=== PATIENT | male | born 1965 | race Caucasian/White ===

== ENCOUNTER 2022-03-18 21:04 | Inpatient (IN) | payer OTHER, SELFPAY ==
[2022-03-18 21:08] VITALS: BP 84/64; PULSE 119; RESP 16; TEMP 38.5; O2SAT 95; BMI 26.8
[2022-03-18 22:07] VITALS: BP 69/52; PULSE 75; RESP 18; O2SAT 97
[2022-03-18] MEDS: Famotidine 200 MG/20 ML MDV 40 MG in 0.9% Normal Saline (Pres. free 6 ML 300 MG IV (22:22)
[2022-03-18] MEDS: 0.9% Normal Saline 1,000 ML 999 ML IV (22:22)
--- NOTE | 2022-03-18 22:22 | RAD_ITS ---
STUDY: X-RAY CHEST REASON FOR EXAM: Male, 56 years old. cough TECHNIQUE: AP COMPARISON: None. FINDINGS: The lungs are clear and expanded. There is no demonstrated pleural abnormality. Normal size heart. Normal mediastinum and kristopher. Normal visualized pulmonary arteries. Normal visualized aortic arch and descending thoracic aorta. Normal visualized thoracic spine. Normal visualized ribs, clavicles, and shoulders. There is no demonstrated abnormality of the visualized soft tissue structures of the upper abdomen. RAD/Chest 1 View (Portable) IMPRESSION: Nonacute portable x-ray examination of the chest. Electronically Signed: Karthik Wilhelm MD (Brooks) at 22:36 EDT Reading Location ID and State: [facility] / [place] , Service support ,
[2022-03-18] MEDS: Acetaminophen 500 MG Tablet 1000 MG PO (22:23)
[2022-03-18] MEDS: MethylPREDNISolone 125 MG/2 ML Vial IV (22:24)
[2022-03-18 22:30] LABS: Absolute Lymphocyte Count 0.78 X10^3/uL (0.83-4.51); Absolute Neutrophil Count 8.6 X10^3/uL (2.0-7.7); Basophil# 0.02 X10^3/uL; Basophil% 0.2 % (0-1); Eosinophil# 0.08 X10^3/uL; Eosinophils% 0.8 % (0-5); Hematocrit 40.3 % (40-54); Hemoglobin 13.7 g/dL (13.0-16.5); Lymphocyte # 0.78 X10^3/ul (0.83-4.51); Lymphocyte % 7.8 % (19-41); Mean Corpuscular Hgb 29.4 pg (27.0-32.0); Mean Corpuscular Volume 86.5 fL (80-94); Mean Platelet Vol. 9.7 fl (6.2-12.0); Monocyte# 0.47 X10^3/uL; Monocyte% 4.7 % (0-10); NRBC Flagged by Analyzer 0 % (0-5); Neutrophil # 8.62 X10^3/uL (2.7-7.7); Platelet Count 193 K/mm3 (150-450); RBC Distribution Width CV 13.4 % (11.6-14.6); Red Blood Count 4.66 M/mm3 (4.6-6.2)
[2022-03-18 22:55] LABS: AST(SGOT) 19 U/L (15-37); Alanine Aminotransfer ALT/SGPT 17 U/L (16-61); Albumin, Serum 3.2 g/dL (3.2-5.0); Alkaline Phosphatase 50 U/L (45-117); Anion Gap 8 (5-15); BUN 16 mg/dL (7-18); BUN/Creat Ratio 9.6 RATIO (10-20); Bilirubin, Direct 0.24 mg/dL (0.00-0.30); Chloride 106 mmol/L (98-107); Creatinine, Serum 1.66 mg/dL (0.70-1.30); EST Glomerular Filtration Rate 46 mL/min (>60); Est Glom Filt Rate - Afr Amer 56 mL/min (>60); Estimated Creatinine Clearance 58.46 ml/min; Globulin 3.4 g/dL (2.2-4.2); Glucose 128 mg/dL (74-106); Potassium 4.3 mmol/L (3.5-5.1); Protein, Total 6.6 g/dL (6.4-8.2); Sodium Level 137 mmol/L (136-145)
[2022-03-18 23:04] LABS: Lactic Acid 0.9 mmol/L (0.4-1.9)
[2022-03-18 23:47] VITALS: BP 75/40; PULSE 76; RESP 18; O2SAT 98
[2022-03-19] VITALS (34 sets, daily range): BP systolic 82–121; BP diastolic 44–79; PULSE 53–98; RESP 13–28; TEMP 36.6–36.9; O2SAT 92–100; BMI 27.1
--- NOTE | 2022-03-19 00:12 | ED.RN ---
Dr. saldivar made aware of patients blood pressure.
--- NOTE | 2022-03-19 00:57 | EKG12_ITS ---
Test Reason : DYSRHYTHMIA Blood Pressure : / mmHG Vent. Rate : 090 BPM Atrial Rate : 090 BPM P-R Int : 118 ms QRS Dur : 078 ms QT Int : 366 ms P-R-T Axes : 069 032 009 degrees QTc Int : 447 ms Normal sinus rhythm Nonspecific T wave abnormality Abnormal ECG Confirmed by LUDMILA SAM, JOE ([id number]), communications editor STAN HALE ([id number]) on 03/19/2022 11:43:11 AM Referred By: HOLLY Confirmed By:JOE KEYS MD
--- NOTE | 2022-03-19 01:04 | HP.PCM.HOS_ITS ---
HPI - General General Date of Admission: 03/19/22 HPI Narrative RAJNI BONNER, is a 56 M with no significant medical history except he chews tobacco presents to the emergency department with diffuse rashes on his body. His symptoms started a day before presentation with malaise. Also he reports a non productive cough. He went to the urgent care and he was diagnosed with upper respiratory infection and prescribed albuterol that even though he picked up he had not started taking as at the time of presentation.. The patient stayed home the day of presentation. When his returned from where his read the patient was covered with diffuse rash with his eyes closing secondary to swelling and rash. Patient denies shortness of breath. Patient reports weakness and anorexia. He reports some change in his taste. He denies anosmia. COVID-19 screen at emergency department was found to be positive. Patient denies receiving COVID-19 vaccination. At the emergent department patient was found to have persistent hypotension which prompted his hospital stay. Home medicine: Patient is not on any home medicine except albuterol inhaler prescribed at urgent care visit and for which he never took. [facility] Medical History no medical history Home Medications NK 03/19/22 [History Last Taken Unknown] Allergy/AdvReac Type Severity Reaction Status Date / Time ANTIHISTAMINES Allergy Swelling Uncoded 03/18/22 21:05 Family History no significant family his other (Patient denies any knowledge of maternal or paternal medical history.) Surgical History no surgical history no surgical history Social History Smoking Status: Current every day smoker tobacco type: smokeless tobacco Smokeless tobacco user: chewing tobacco alcohol intake: current details: Reports drinking 2 to 3 cans/bottles of beer per day ROS ROS Narrative Pertinent positives and pertinent negatives as noted in HPI. All other systems were reviewed and are negative. Vital Signs Vital Signs Vital Signs: 03/18/22 21:08 03/18/22 22:07 03/18/22 23:47 Temperature 101.3 F H Temperature Source Temporal Pulse Rate 119 H 75 76 Respiratory Rate 16 18 18 Blood Pressure 84/64 L 69/52 L 75/40 L Blood Pressure Mean 70 57 51 Pulse Ox 95 97 98 Oxygen Delivery Method Room Air Room Air Room Air 03/19/22 00:07 Temperature Temperature Source Pulse Rate 76 Respiratory Rate 18 Blood Pressure 82/44 L Blood Pressure Mean 56 Pulse Ox 98 Oxygen Delivery Method Room Air Weight Weight: 94.7 kg Body Mass Index (BMI) 26.8 Physical Exam Narrative Physical exam: General: Well-nourished, well-developed. Head: Normocephalic, atraumatic, no tenderness Eyes: Vision is grossly intact. EOMI ENT, no trauma, moist mucous membranes, no rhinorrhea Neck: Nontender, full range of motion, no spinal tenderness, deformities, step- off CVS: Regular rate and rhythm. S1-S2 present. No murmur, gallop or rub. Respiratory : Wheezes at right base. All other lung melendez clear. Chest wall nontender. Abdomen: Soft, nontender, nondistended, normal bowel sounds, no masses : Deferred Back: Nontender, no CVA tenderness, no midline spinal tenderness, deformities, step-offs Extremities: Nontender full range of motion, no trauma Skin: Scattered urticarial rash throughout body. No abrasions Neuro: Alert, oriented, cranial nerves II through XII grossly intact. Psychiatry: Normal mood. Normal affect. Not depressed. Not anxious. Results Lab / Micro Data Result Diagrams: 03/18/22 22:20 03/18/22 22:20 Labs: Laboratory Results - last 24 hr 03/18/22 22:20: WBC 10.0, RBC 4.66, Hgb 13.7, Hct 40.3, MCV 86.5, MCH 29.4, MCHC 34.0, RDW Std Deviation 42.0, RDW Coeff of Lázaro 13.4, Plt Count 193, MPV 9.7, Immature Gran % (Auto) 0.500, Neut % (Auto) 86.0 H, Lymph % (Auto) 7.8 L, [place] % (Auto) 4.7, Eos % (Auto) 0.8, Baso % (Auto) 0.2, Absolute Neuts (auto) 8.6 H, Absolute Lymphs (auto) 0.78 L, Nucleated RBC % 0 03/18/22 22:20: Sodium 137, Potassium 4.3, Chloride 106, Carbon Dioxide 23.0, Anion Gap 8, BUN 16, Creatinine 1.66 H, Estim Creat Clear Calc 58.46, Est GFR (MDRD) Af Amer 56 L, Est GFR (MDRD) Non-Af 46 L, BUN/Creatinine Ratio 9.6 L, Glucose 128 H, Calcium 8.0 L, Total Bilirubin 1.80 H, Direct Bilirubin 0.24, AST 19, ALT 17, Alkaline Phosphatase 50, Total Protein 6.6, Albumin 3.2, Globulin 3.4 03/18/22 22:20: Lactic Acid 0.9 Micro: Microbiology 03/18/22 22:15 Nasal Secretion SARS-CoV-2 & FLU Antigen (Rapid) - Final SARS-CoV-2 (COVID 19) Radiology Impression Chest X-Ray 03/18/22 22:22 IMPRESSION: Nonacute portable x-ray examination of the chest. Electronically Signed: Karthik Wilhelm MD (Brooks) at 22:36 EDT , Assessment & Plan Assessment/Plan (1) Hypotension: QUALIFIERS: Hypotension type: unspecified hypotension type Denis lified Code(s): I95.9 - Hypotension, unspecified (2) COVID-19: (3) Urticarial rash: PLAN: Hypotension Received 1 L bolus of normal saline at the emergency department. Because of COVID-19 further IV fluid boluses were not given. Started on Levophed drip at emergency department and continued. Midodrine ordered with plan to taper down Levophed. Will observe and intensive care unit and will consult payroll and benefits assistant. CBC reviewed showed normal white counts but with neutrophilia of 86% and lymphopenia of 7.8%. COVID-19 infection Chest x-ray was visualized and independently interpreted and agree radiology interpretation above. Patient is not hypoxic. As needed albuterol ordered. PRN Tessalon Perles ordered. Keep on an enhanced droplet precautions. Urticarial rash Received epinephrine Pepcid and Solu-Medrol emergency department. Loratadine daily ordered. Pepcid ordered. Prednisone ordered. As needed Benadryl ordered. Hyperbilirubinemia Total bilirubin of presentation was 1.80 Likely secondary to COVID. Trend CMP Elevated creatinine Creatinine presentation was 1.66. Unknown baseline. Could be secondary to FAY from COVID-19 infection. Gentle IV hydration. Avoid nephrotoxins. Trend CMP. Tobacco abuse Counseled. DVT prophylaxis: Subcutaneous Lovenox ordered Charges/Coding Visit Charges OBSV E&M: 18790 Initial observation care L3
--- NOTE | 2022-03-19 01:27 | EDS_ITS ---
HPI History of Present Illness Chief Complaint: Rash Narrative Narrative: Patient is a 56-year-old male who does not regularly see a doctor. He states that over the past 3 to 4 days he has had congestion cough and fatigue. He states secondary to this he went to an urgent care earlier today. He reports that he was informed he has a upper respiratory tract infection and was prescribed certain medications. He states prior to her starting his medications he then developed a whole-body rash that he states is more pruritic in nature. He denies any new exposures but states that as he has now developed a rash and also a fever was concerned and therefore comes in for evaluation [facility] Medical History no medical history Home Medications NK 03/19/22 [History Last Taken Unknown] Allergy/AdvReac Type Severity Reaction Status Date / Time ANTIHISTAMINES Allergy Swelling Uncoded 03/18/22 21:05 Family History no significant family his Surgical History no surgical history Social History Smoking Status: Current every day smoker tobacco type: smokeless tobacco Smokeless tobacco user: chewing tobacco alcohol intake: current details: Reports drinking 2 to 3 cans/bottles of beer per day ROS ROS ED Constitutional Constitutional ED: Reports fever(s); Denies chills ENT ENT ED: Reports rhinorrhea and sore throat Cardiovascular Cardiovascular: Denies chest pain Respiratory/Chest Respiratory/Chest: Reports cough and dyspnea Gastrointestinal Gastrointestinal: Denies abdominal pain, diarrhea, nausea or vomiting Genitourinary Genitourinary ED: Denies dysuria Musculoskeletal Musculoskeletal: Denies myalgias Integumentary Reports rash Neurologic Neurologic: Denies headache(s) Hematologic/Lymphatic Hematologic/Lymphatic: Denies easy bleeding or easy bruising EXAM Physical Exam Const Vital Signs: 03/18/22 21:08 03/18/22 22:07 03/18/22 23:47 Temperature 101.3 F H Temperature Source Temporal Pulse Rate 119 H 75 76 Respiratory Rate 16 18 18 Blood Pressure 84/64 L 69/52 L 75/40 L Blood Pressure Mean 70 57 51 Pulse Ox 95 97 98 Oxygen Delivery Method Room Air Room Air Room Air 03/19/22 00:07 Temperature Temperature Source Pulse Rate 76 Respiratory Rate 18 Blood Pressure 82/44 L Blood Pressure Mean 56 Pulse Ox 98 Oxygen Delivery Method Room Air Positive well nourished and well developed General Appearance ED: well developed HEENT Reports dry mucous membranes HEENT Narrative: No tongue or lip swelling no oral lesions no airway edema or compromise Mouth ED: Yes dry mucous membranes Mouth: dry mucous membranes Eyes PERRL and EOMs intact bilaterally Neck supple Neck Narrative: Positive anterior cervical lymphadenopathy Chest Wall palpation of chest normal Resp normal respiratory effort and clear to auscultation bilaterally Resp Narrative: Breath sounds are slightly diminished throughout but overall clear to auscultation with no signs of distress Cardio regular rhythm Rate: tachycardic and other Other Details: Radial pulses are +2-4 bilaterally are equal and symmetric GI normal to inspection, nondistended, normoactive bowel sounds, non-tender, non- distended and no masses Auscultation: normoactive bowel sounds Palpation: soft Extremity normal to inspection Extremity Narrative: No asymmetric edema no pitting edema negative Homans' sign bilaterally Neuro oriented x3 and CN's II-XII intact bilaterally Sensorium / Orientation: alert Motor Exam: strength 5/5 throughout Psych mental status grossly normal Skin Skin Narrative: Patient has a diffuse erythematous blanchable urticarial-like rash to his legs chest abdomen back arms and face. No involvement of the palms or soles. No sloughing of the skin or coalescing lesions to suggest Edwards- Carlos Alberto syndrome or staphylococcal scalded skin syndrome MDM MDM MDM Narrative Medical decision making narrative: Patient presented to the ER febrile to 101 and was tachycardic associated with this. His blood pressure was hypotensive at approximately 80/60. Patient states he does not have any history of low blood pressure as far as he knows but as he does not go to the doctor does not normally know what his blood pressure runs. Based on his constellation of symptoms and hypotension basic blood work chest x-ray and COVID swab were obtainedl blood work revealed no clinically significant findings and COVID test was positive. Because of the rash patient was treated with steroids and epinephrine and Pepcid Benadryl was held because of his reported allergy to antihistamine. He was given 1 L fluid and despite fluid resuscitation remained hypotensive. Therefore the patient will be started on a peripheral Levophed drip secondary to his persistent hypotension but as he does not have white count left shift or lactic acidosis is not meeting sepsis criteria. I did not provide more than 1 L of fluid based on his COVID diagnosis as studies have shown that aggressive fluid resuscitation can worsen symptoms. Lab Data Attestation: I reviewed the patient's lab results. Labs: Laboratory Results - last 24 hr 03/18/22 03/18/22 03/18/22 22:20 22:20 22:20 WBC 10.0 RBC 4.66 Hgb 13.7 Hct 40.3 MCV 86.5 MCH 29.4 MCHC 34.0 RDW Std Deviation 42.0 RDW Coeff of Lázaro 13.4 Plt Count 193 MPV 9.7 Immature Gran % (Auto) 0.500 Neut % (Auto) 86.0 H Lymph % (Auto) 7.8 L [place] % (Auto) 4.7 Eos % (Auto) 0.8 Baso % (Auto) 0.2 Absolute Neuts (auto) 8.6 H Absolute Lymphs (auto) 0.78 L Nucleated RBC % 0 Sodium 137 Potassium 4.3 Chloride 106 Carbon Dioxide 23.0 Anion Gap 8 BUN 16 Creatinine 1.66 H Estim Creat Clear Calc 58.46 Est GFR (MDRD) Af Amer 56 L Est GFR (MDRD) Non-Af 46 L BUN/Creatinine Ratio 9.6 L Glucose 128 H Lactic Acid 0.9 Calcium 8.0 L Total Bilirubin 1.80 H Direct Bilirubin 0.24 AST 19 ALT 17 Alkaline Phosphatase 50 Troponin I High Sens Total Protein 6.6 Albumin 3.2 Globulin 3.4 03/18/22 22:20 WBC RBC Hgb Hct MCV MCH MCHC RDW Std Deviation RDW Coeff of Lázaro Plt Count MPV Immature Gran % (Auto) Neut % (Auto) Lymph % (Auto) [place] % (Auto) Eos % (Auto) Baso % (Auto) Absolute Neuts (auto) Absolute Lymphs (auto) Nucleated RBC % Sodium Potassium Chloride Carbon Dioxide Anion Gap BUN Creatinine Estim Creat Clear Calc Est GFR (MDRD) Af Amer Est GFR (MDRD) Non-Af BUN/Creatinine Ratio Glucose Lactic Acid Calcium Total Bilirubin Direct Bilirubin AST ALT Alkaline Phosphatase Troponin I High Sens < 3 L Total Protein Albumin Globulin Radiography Diagnostic Testing: Clinical Impression(s) from Imaging Studies Chest X-Ray 03/18/22 22:22 IMPRESSION: Nonacute portable x-ray examination of the chest. Electronically Signed: Karthik Wilhelm MD (Brooks) at 22:36 EDT , Chest x-ray as interpreted by the emergency medicine physician reveals no acute infiltrate pneumothorax or pleural effusion Discharge Plan Dx/Rx/DC Orders Clinical Impression: COVID-19, Hypotension Disposition Disposition: Acute Care Hospital [facility] Discharge Date/Time: 03/19/22 02:22
[2022-03-19 01:29] LABS: Troponin-I HS < 3 pg/mL (3.0-78.0)
[2022-03-19] MEDS: TITRATION PARAMETER CHANGE 1 EACH IV (02:15)
[2022-03-19] MEDS: 0.9% Normal Saline 1,000 ML 100 ML IV (02:41)
[2022-03-19] MEDS: Loratadine 10 MG Tablet PO (02:50)
[2022-03-19 05:04] LABS: Absolute Lymphocyte Count 0.51 X10^3/uL (0.83-4.51); Absolute Neutrophil Count 10.8 X10^3/uL (2.0-7.7); Basophil# 0.01 X10^3/uL; Basophil% 0.1 % (0-1); Eosinophil# 0.01 X10^3/uL; Eosinophils% 0.1 % (0-5); Hematocrit 38.2 % (40-54); Hemoglobin 13.2 g/dL (13.0-16.5); Lymphocyte # 0.51 X10^3/ul (0.83-4.51); Lymphocyte % 4.4 % (19-41); Mean Corp Hgb Conc 34.6 g/dL (32-36); Mean Corpuscular Hgb 29.5 pg (27.0-32.0); Mean Corpuscular Volume 85.3 fL (80-94); Mean Platelet Vol. 9.9 fl (6.2-12.0); Monocyte# 0.17 X10^3/uL; Monocyte% 1.5 % (0-10); NRBC Flagged by Analyzer 0 % (0-5); Neutrophil # 10.82 X10^3/uL (2.7-7.7); Neutrophil % 93.3 % (47-70); POSITIVE DIFFERENTIAL YES; Platelet Count 174 K/mm3 (150-450); RBC Distribution Width CV 13.3 % (11.6-14.6); RBC Distribution Width SD 41.7 fl (35.1-43.9); Red Blood Count 4.48 M/mm3 (4.6-6.2); White Blood Count 11.6 K/mm3 (4.4-11.0)
--- NOTE | 2022-03-19 05:04 | NURSING ---
Pt stated upon arrival to [facility] that he is allergic to antihistamines, and Benadryl was not given in the ED when he came in with an allergic reaction. After arriving to ICU, Benadryl and Claritin were ordered on JAN. Claritin was administered per order and Benadryl was held. Pt was asked if he takes any meds at home, and he stated just meds for allergies...something that starts with a 'Z'. Upon further questioning, pt stated that he takes Zyrtec but is allergic to all antihistamines and gets a rash all over like the one he has currently. Pharmacy was called and consulted about Claritin administration, and since pt regularly takes Zyrtec at home, Claritin was okay to give.
[2022-03-19 05:06] LABS: Differential Indicated SCAN CRITERIA MET
[2022-03-19 05:18] LABS: Differential Comment SCANNED
[2022-03-19 05:23] LABS: AST(SGOT) 13 U/L (15-37); Alanine Aminotransfer ALT/SGPT 18 U/L (16-61); Albumin, Serum 3.3 g/dL (3.2-5.0); Alkaline Phosphatase 48 U/L (45-117); Anion Gap 7 (5-15); BUN 17 mg/dL (7-18); BUN/Creat Ratio 11.9 RATIO (10-20); Chloride 107 mmol/L (98-107); Creatinine, Serum 1.43 mg/dL (0.70-1.30); EST Glomerular Filtration Rate 54 mL/min (>60); Est Glom Filt Rate - Afr Amer 66 mL/min (>60); Estimated Creatinine Clearance 67.86 ml/min; Globulin 3.3 g/dL (2.2-4.2); Glucose 215 mg/dL (74-106); Potassium 3.8 mmol/L (3.5-5.1); Protein, Total 6.6 g/dL (6.4-8.2); Sodium Level 138 mmol/L (136-145)
--- NOTE | 2022-03-19 07:03 | CON.PCM.CC_ITS ---
Assessment & Plan Assessment/Plan (1) Hypotension: QUALIFIERS: Hypotension type: unspecified hypotension type Qualified Code(s): I95.9 - Hypotension, unspecified (2) COVID-19: (3) Anaphylactic reaction: PLAN: RECOMMENDATIONS: 1. Wean off Levophed 2. Continue Solu-Medrol for now 3. Continue contact and respiratory isolation. Quarantine for 10 days 4. Monitor for alcohol withdrawal 5. EpiPen on discharge. Follow-up with guidance consultant IMPRESSIONS: 1. Anaphylactic reaction Unclear etiology. Patient with rash, lip swelling and hypotension. These findings are consistent with an anaphylactic reaction. Unfortunately, etiology is not clear, so patient will need to be discharged with an EpiPen. Patient will also need to establish with an guidance consultant for testing. Patient does not appear to have any insect vectors. Patient is not reporting any new exposures. Continued need for Levophed likely secondary to an inability to receive Benadryl/Pepcid secondary to reported allergy 2. COVID-19 Unvaccinated. Clinical suspicion this is not contributing to problem #1. Patient on day 4 of symptoms, but does not qualify for aggressive therapy such as Remdesivir or Decadron as patient does not have an asthma history and is on room air. Patient can continue Solu-Medrol from an anaphylactic perspective. No wheezing noted on exam. Patient was instructed to quarantine, but appears precontemplative. 3. Routine alcohol use/poor primary care/poor insight Complicates care, management, recovery and prognosis. Patient is not reporting withdrawal symptoms in the past, but does drink regularly. Cannot exclude the need for CIWA/Ativan if patient remains hospitalized for more than 48 hours. Patient was encouraged to obtain a PCP as there are other medical conditions that may need to be addressed outside of the acute issue. HPI Consult Data Date of Consult: 03/19/22 HPI Narrative HPI Narrative: RAJNI BONNER is a 56 M, with no reported past medical history, who presents to [facility] on 03/19/2022 secondary to rash and facial swelling. Patient reportedly has had 3 to 4 days of cough, congestion and fatigue. Patient had gone to an urgent care center earlier in the day. Patient reportedly had received some medications of unclear nature. Patient subsequently developed a whole-body rash that was pruritic in nature. Patient also developed a fever, so came into the ER for evaluation. Patient reportedly has not been vaccinated against COVID-19. In the ER, patient was noted to have a temperature of 101.3 ?F and was tachycardic at 119 bpm. Patient was hypotensive, but saturating well on room air. ER physician had not reported any facial swelling at that time. Patient did come back as COVID positive. Patient was not given Pepcid or Benadryl secondary to a reported allergy to antihistamine. Patient did receive 1 L of IV fluids for hypotension and was placed on Levophed. Laboratory work-up showed a white blood cell count of 10, hemoglobin of 13.7 and platelet count of 193. Chemistry showed an elevated creatinine of 1.66, lactate of 0.9 and a slightly elevated bilirubin at 1.8. Troponins were negative and chest x-ray was normal. Patient was given Solu-Medrol and then admitted to the intensive care unit for further evaluation. Since being in the intensive care unit, patient's Levophed requirements have significantly improved. Discussion with the nurse was that patient did have some facial swelling initially, but this improves throughout the course of the night. Patient's rash has also improved. Patient states he is feeling close to normal at this time. Patient states that he has been seen by an guidance consultant in the past, but was not noted to have any significant allergies. Patient has not had a need for epinephrine previously. 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 Patient does not report any tick, bee stings or mosquito bites that he is aware of. Patient has developed a similar type rash associated with Benadryl. Patient does report drinking 3-5 beers per day. 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 Patient denies any inhaled tobacco, but does use smokeless tobacco. Review of systems otherwise negative from a constitutional, HEENT, respiratory, cardiovascular, GI, genitourinary, musculoskeletal, skin, neurologic, psychiatric and hematologic system unless stated above. [facility] Medical History no medical history Home Medications NK 03/19/22 [History Last Taken Unknown] Allergy/AdvReac Type Severity Reaction Status Date / Time ANTIHISTAMINES Allergy Swelling Uncoded 03/18/22 21:05 Family History no significant family his Surgical History no surgical history Social History Smoking Status: Current every day smoker tobacco type: smokeless tobacco Smokeless tobacco user: chewing tobacco alcohol intake: current details: Reports drinking 2 to 3 cans/bottles of beer per day ROS ROS Narrative See HPI Physical Exam Const alert, oriented x3 and no apparent distress General Appearance: cooperative and well developed HEENT normocephalic, head/scalp atraumatic and moist oral mucous membranes Eyes PERRL and EOMs intact bilaterally Neck full ROM and no lymphadenopathy Chest inspection of chest normal Resp normal respiratory effort and no use of accessory muscles Effort and Inspection: able to speak in complete sentences Auscultation: clear to auscultation bilaterally; Negative for rales, rhonchi or wheezes Percussion: Negative for dullness Cardio regular rate, regular rhythm, S1 normal heart sound, S2 normal heart sound, no murmurs, no rub and no gallops GI normal to inspection, nondistended, normoactive bowel sounds no CVA tenderness Extremity no clubbing, cyanosis or edema Skin Skin Narrative: Slight macular rash on trunk. Neuro oriented x3, CN's II-XII intact bilaterally, moves all extremities and no focal motor deficits Psych cooperative and affect normal Lab / Micro Data Result Diagrams: 03/19/22 04:50 03/19/22 04:50 Labs: Laboratory Results - last 24 hr 03/18/22 22:20: WBC 10.0, RBC 4.66, Hgb 13.7, Hct 40.3, MCV 86.5, MCH 29.4, MCHC 34.0, RDW Std Deviation 42.0, RDW Coeff of Lázaro 13.4, Plt Count 193, MPV 9.7, Immature Gran % (Auto) 0.500, Neut % (Auto) 86.0 H, Lymph % (Auto) 7.8 L, [place] % (Auto) 4.7, Eos % (Auto) 0.8, Baso % (Auto) 0.2, Absolute Neuts (auto) 8.6 H, Absolute Lymphs (auto) 0.78 L, Nucleated RBC % 0 03/18/22 22:20: Sodium 137, Potassium 4.3, Chloride 106, Carbon Dioxide 23.0, Anion Gap 8, BUN 16, Creatinine 1.66 H, Estim Creat Clear Calc 58.46, Est GFR (MDRD) Af Amer 56 L, Est GFR (MDRD) Non-Af 46 L, BUN/Creatinine Ratio 9.6 L, Glucose 128 H, Calcium 8.0 L, Total Bilirubin 1.80 H, Direct Bilirubin 0.24, AST 19, ALT 17, Alkaline Phosphatase 50, Total Protein 6.6, Albumin 3.2, Globulin 3.4 03/18/22 22:20: Lactic Acid 0.9 03/18/22 22:20: Troponin I High Sens < 3 L 03/19/22 04:50: WBC 11.6 H, RBC 4.48 L, Hgb 13.2, Hct 38.2 L, MCV 85.3, MCH 29.5, MCHC 34.6, RDW Std Deviation 41.7, RDW Coeff of Lázaro 13.3, Plt Count 174, MPV 9.9, Immature Gran % (Auto) 0.600, Neut % (Auto) 93.3 H, Lymph % (Auto) 4.4 L, [place] % (Auto) 1.5, Eos % (Auto) 0.1, Baso % (Auto) 0.1, Absolute Neuts (auto) 10.8 H, Absolute Lymphs (auto) 0.51 L, Nucleated RBC % 0, Differential Comment SCANNED 03/19/22 04:50: Sodium 138, Potassium 3.8, Chloride 107, Carbon Dioxide 24.0, Anion Gap 7, BUN 17, Creatinine 1.43 H, Estim Creat Clear Calc 67.86, Est GFR (MDRD) Af Amer 66, Est GFR (MDRD) Non-Af 54 L, BUN/Creatinine Ratio 11.9, Glucose 215 H, Calcium 8.0 L, Total Bilirubin 1.60 H, AST 13 L, ALT 18, Alkaline Phosphatase 48, Total Protein 6.6, Albumin 3.3, Globulin 3.3, Albumin/Globulin Ratio 1.0 Micro: Microbiology 03/18/22 22:15 Nasal Secretion SARS-CoV-2 & FLU Antigen (Rapid) - Final SARS-CoV-2 (COVID 19) Radiology Impression Chest X-Ray 03/18/22 22:22 IMPRESSION: Nonacute portable x-ray examination of the chest. Electronically Signed: Karthik Wilhelm MD (Brooks) at 22:36 EDT Reading Location ID and State: [facility] / [place] , Service support , Charges/Coding Visit Charges Inpatient E&M: 53594 Init Hosp L3
[2022-03-19] MEDS: Famotidine 20 MG Tablet PO ×2 (07:57→22:06)
[2022-03-19] MEDS: Midodrine HCl 5 MG Tablet 10 MG PO (07:57)
[2022-03-19] MEDS: predniSONE 20 MG Tablet 40 MG PO (07:57)
[2022-03-19] MEDS: Enoxaparin 30 MG/0.3 ML Syringe SC ×2 (07:57→22:07)
--- NOTE | 2022-03-19 09:45 | CASEMGMT ---
RN CM WASTE SALVAGER CM to room to meet with patient for initial transition planning/care coordination assessment. ADELAIDA DAVALOS introduced self and role at [facility]. Pt voices understanding and consents to assessment at this time. Pt resting in bed in no distress at this time. Pt is A/O at this time and answers all questions but most responses very brief/short. Pt, at one point, pushed breakfast tray away abruptly and seemed agitated, but did continue w/answering questions. Care providers, pharmacy, and demographics verified/updated at this time. PCP: Has been to Dr Pickens in [place]. States has been there this past year, but does not routinely go. He states wishes to go back there, as this is where his sig other, Ermelinda, goes. Specialists: Per physician note, pt to f/u w/eviscerator. Pt provided w/list of local ENT/allergists. Preferred Pharmacy: [facility] on [address] in [place] Insurance: MMO Prescription Benefit: Pt states he thinks he has rx coverage, but is not sure. Living Will/HPOA: States does not have LW or HCPOA . Interested in more information but states does not want to talk with SW at this time to complete paperwork. Info on advanced directives and Social Service rac card with contact info given to ADELAIDA Fairbanks, to give to pt. LNOK: Parents, Phill and Angelica Rangel. Sig other, Ermelinda Spaulding. Living Arrangements: Lives w/Ermelinda. Independent. 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 Transportation: Pt states drives self and states no transportation concerns at this time. DME: Denies using any DME and denies needs. HHC/SNF: No hx of either. No needs identified. ETOH/nicotine. Pt chews tobacco. He does not smoke. He drinks 3-5 beers/day and states his last drink was Tues night. ADELAIDA Fairbanks, made aware. Pt declines wanting any resources to help stop drinking. Pt wishes to return home and states has no concerns with going home at time of discharge. CM to follow for any discharge planning/needs. Pt voices no concerns/needs at this time. Advised pt to ask for CM if any further questions/concerns/needs arise. PLAN: Home w/discharge plans in place. Emmy ANTOINE RN, CM
--- NOTE | 2022-03-19 10:34 | PCM.HOSP.N ---
Hospitalist Note Mr. Rangel is a 56-year-old white male who presented to the emergency department early this morning with a diffuse rash all over his body. The symptoms started the day prior to presentation and were associated with malaise. He also had been experiencing nonproductive cough. He went to urgent care and was diagnosed with an acute upper respiratory tract infection and was prescribed albuterol but had not initiated that at the time of presentation. His rash is evidently whole body and pruritic. Since developing the rash she has had some fever and came in out of concern for this. In the emergency department he was found to be hypotensive with a blood pressure of 80/60 and it is documented that he had some face and lip swelling once he arrived in the ICU. He was treated with steroids and epinephrine and given 1 L of IV fluid for resuscitation but remained hypotensive and was therefore started on peripheral Levophed. He was found to be COVID follow-up positive as the cause for his respiratory symptoms and given his COVID diagnosis aggressive hydration was avoided to avoid decompensation from a respiratory standpoint. The patient remains on room air this morning his blood pressure is normalized and he is off pressors. We do suspect this to be an anaphylactic reaction to an unknown etiology. We allowed him to stabilize today and as long as things remain stable we do anticipate discharge in the next 24 hours. He has no symptoms associated with his COVID 19 infection. We will discharge him with an epinephrine pen and request that he follow-up with allergy and immunology after discharge.
--- NOTE | 2022-03-19 15:32 | CASEMGMT ---
Pt to be sent home on Epi pen at discharge and med e-scribed to [facility] in [place] previously. Call to [facility] to check coverage/co-pay and per Kevin, pt's co-pay for Epi-pen is $10. Tiki SON aware, voices understanding. Venessa SON CM
--- NOTE | 2022-03-19 16:32 | NURSING ---
report called to med-surg for transfer to room 307
[2022-03-20 04:30] VITALS: BP 100/61; PULSE 59; RESP 16; TEMP 36.5; O2SAT 98
[2022-03-20 07:25] LABS: Absolute Lymphocyte Count 1.57 X10^3/uL (0.83-4.51); Absolute Neutrophil Count 5.7 X10^3/uL (2.0-7.7); Basophil# 0.01 X10^3/uL; Basophil% 0.1 % (0-1); Eosinophil# 0.04 X10^3/uL; Eosinophils% 0.5 % (0-5); Hematocrit 35.2 % (40-54); Hemoglobin 11.6 g/dL (13.0-16.5); Lymphocyte # 1.57 X10^3/ul (0.83-4.51); Lymphocyte % 19.7 % (19-41); Mean Corpuscular Hgb 29.4 pg (27.0-32.0); Mean Corpuscular Volume 89.1 fL (80-94); Mean Platelet Vol. 10.2 fl (6.2-12.0); Monocyte# 0.61 X10^3/uL; Monocyte% 7.6 % (0-10); NRBC Flagged by Analyzer 0 % (0-5); Neutrophil # 5.72 X10^3/uL (2.7-7.7); Neutrophil % 71.7 % (47-70); Platelet Count 145 K/mm3 (150-450); RBC Distribution Width CV 13.8 % (11.6-14.6); Red Blood Count 3.95 M/mm3 (4.6-6.2)
[2022-03-20 08:09] LABS: Anion Gap 6 (5-15); BUN 21 mg/dL (7-18); BUN/Creat Ratio 19.3 RATIO (10-20); Calcium,Total 8.6 mg/dL (8.5-10.1); Chloride 108 mmol/L (98-107); Creatinine, Serum 1.09 mg/dL (0.70-1.30); EST Glomerular Filtration Rate 75 mL/min (>60); Est Glom Filt Rate - Afr Amer 90 mL/min (>60); Estimated Creatinine Clearance 89.03 ml/min; Glucose 105 mg/dL (74-106); Potassium 3.7 mmol/L (3.5-5.1); Sodium Level 141 mmol/L (136-145)
--- NOTE | 2022-03-20 08:13 | PN.CC_ITS ---
Assessment & Plan Assessment/Plan (1) Hypotension: QUALIFIERS: Hypotension type: unspecified hypotension type Qualified Code(s): I95.9 - Hypotension, unspecified (2) COVID-19: (3) Anaphylactic reaction: PLAN: RECOMMENDATIONS: 1. EpiPen at discharge with allergy referral 2. No prednisone or Remdesivir needed for COVID 3. Continue contact and respiratory isolation. Quarantine for 10 days 4. Monitor for alcohol withdrawal 5. Hemodynamically stable on room air. No need for outpatient follow-up. Will sign off from a critical care perspective IMPRESSIONS: 1. Anaphylactic reaction Unclear etiology. Patient with rash, lip swelling and hypotension. These findings are consistent with an anaphylactic reaction. Unfortunately, etiology is not clear, so patient will need to be discharged with an EpiPen. Patient will also need to establish with an grain miller helper for testing. Patient does not appear to have any insect vectors. Patient is not reporting any new exposures. 2. COVID-19 Unvaccinated. Clinical suspicion this is not contributing to problem #1. Patient on day 5 of symptoms, but does not qualify for aggressive therapy such as Remdesivir or Decadron as patient does not have an asthma history and is on room air. Likely okay to discontinue steroids on discharge. No wheezing noted on exam. Patient was instructed to quarantine, but appears precontemplative. 3. Routine alcohol use/poor primary care/poor insight Complicates care, management, recovery and prognosis. Patient is not reporting withdrawal symptoms in the past, but does drink regularly. Cannot exclude the need for CIWA/Ativan if patient remains hospitalized for more than 48 hours. Patient was encouraged to obtain a PCP as there are other medical conditions that may need to be addressed outside of the acute issue. Subjective Subjective Patient transferred out of the intensive care unit yesterday. No acute issues reported overnight. Patient does remain on room air despite COVID diagnosis. Nursing with no concerns. Patient was resting comfortably during my evaluation. Objective Data Objective Data Vital Signs: Vital Signs Temp Pulse Resp BP Pulse Ox 36.5 C L 59 L 16 100/61 98 03/20/22 04:30 03/20/22 04:30 03/20/22 04:30 03/20/22 04:30 03/20/22 04:30 Oxygen Delivery Method Room Air Weight: 95.254 kg Body Mass Index (BMI) 27.1 Intake & Output: Intake and Output for Last 24 Hours 03/18/22 03/19/22 03/20/22 23:59 23:59 23:59 Intake Total 3334.79 / 3334.79 240 / 240 Output Total 2200 / 2200 Balance 1134.79 / 1134.79 240 / 240 Lab / Micro Data Result Diagrams: 03/20/22 06:56 03/20/22 06:56 Labs: Laboratory Results - last 24 hr 03/19/22 04:50: Hemoglobin A1c 5.0 03/20/22 06:56: WBC 8.0, RBC 3.95 L, Hgb 11.6 L, Hct 35.2 L, MCV 89.1, MCH 29.4, MCHC 33.0, RDW Std Deviation 45.0 H, RDW Coeff of Lázaro 13.8, Plt Count 145 L, MPV 10.2, Immature Gran % (Auto) 0.400, Neut % (Auto) 71.7 H, Lymph % (Auto) 19.7, Sutter % (Auto) 7.6, Eos % (Auto) 0.5, Baso % (Auto) 0.1, Absolute Neuts (auto) 5.7, Absolute Lymphs (auto) 1.57, Nucleated RBC % 0 03/20/22 06:56: Sodium 141, Potassium 3.7, Chloride 108 H, Carbon Dioxide 27.0, Anion Gap 6, BUN 21 H, Creatinine 1.09, Estim Creat Clear Calc 89.03, Est GFR (MDRD) Af Amer 90, Est GFR (MDRD) Non-Af 75, BUN/Creatinine Ratio 19.3, Glucose 105, Calcium 8.6 Micro: Microbiology 03/18/22 22:15 Nasal Secretion SARS-CoV-2 & FLU Antigen (Rapid) - Final SARS-CoV-2 (COVID 19) Physical Exam Const alert, oriented x3 and no apparent distress General Appearance: cooperative and well developed HEENT normocephalic, head/scalp atraumatic and moist oral mucous membranes Eyes PERRL and EOMs intact bilaterally Neck full ROM and no lymphadenopathy Chest inspection of chest normal Resp normal respiratory effort and no use of accessory muscles Effort and Inspection: able to speak in complete sentences Auscultation: clear to auscultation bilaterally; Negative for rales, rhonchi or wheezes Percussion: Negative for dullness Cardio regular rate, regular rhythm, S1 normal heart sound, S2 normal heart sound, no murmurs, no rub and no gallops GI normal to inspection, nondistended, normoactive bowel sounds no CVA tenderness Extremity no clubbing, cyanosis or edema Skin Skin Narrative: No rash appreciated Neuro oriented x3, CN's II-XII intact bilaterally, moves all extremities and no focal motor deficits Psych cooperative and affect normal Charges/Coding Visit Charges Inpatient E&M: 22369 Subs Hosp L2
[2022-03-20 09:39] VITALS: BP 104/62; PULSE 66; RESP 18; TEMP 36.7; O2SAT 99
[2022-03-20] MEDS: Enoxaparin 30 MG/0.3 ML Syringe SC (09:44)
[2022-03-20] MEDS: predniSONE 20 MG Tablet 40 MG PO (09:44)
[2022-03-20] MEDS: Famotidine 20 MG Tablet PO (09:44)
[2022-03-20] MEDS: Loratadine 10 MG Tablet PO (09:44)
--- NOTE | 2022-03-20 10:18 | PCM.DC.SUM ---
Providers Date of Admission: 03/19/22 Date of Discharge: 03/20/22 Primary Care Physician: Dr. Celio Ramírez MD Consultations 03/19/22 02:16 Consult: [facility] / Pulmonary Medicine Routine Consulting Provider: Cornel Moran Reason for Consult: Covid-19 EMERGENT Consult: No MD Notified: Yes Date Notified: 03/19/22 Time Notified: 01:08 Method of Notification: Verbal Reason For Visit: HYPOTENSION Diagnosis Discharge Diagnosis (1) Hypotension: Status: Acute Code(s): I95.9 - Hypotension, unspecified Qualifiers: Hypotension type: unspecified hypotension type Qualified Code(s): I95.9 - Hypotension, unspecified (2) COVID-19: Status: Acute Code(s): U07.1 - COVID-19 (3) Anaphylactic reaction: Status: Acute Code(s): T78.2XXA - Anaphylactic shock, unspecified, initial encounter Medications at Discharge Home Medications epinephrine [EpiPen 2-Gold] 0.3 mg IM Q4H PRN #1 ea 03/19/22 Hospital Course Operations None Procedures None Summary of Care Provided Minutes Spent on Discharge: 34 Hospital Course: Mr. Rangel is a 56-year-old white male who presented to the emergency department at [facility] on 03/19/2022 early in the morning after he developed a rash all over his body. It was erythematous and diffuse and significantly pruritic in nature. He reports that 3 or 4 days prior he had cough congestion and fatigue. He went to an urgent care earlier on the day of presentation and was informed he had an upper respiratory tract infection likely viral in nature and was prescribed medications for this. He was unclear what these medications were however he reported that his symptoms started prior to him initiating any new meds. Given the fact he had developed this rash and also had a fever he was concerned and therefore came to emergency department for evaluation. Upon presentation he was febrile with a temperature of 101 and tachycardic, his blood pressure was low at 80/60. His blood work was overall unremarkable other than some mild acute kidney injury. His creatinine was 1.66 on admission. A lactic acid was obtained and was 0.9. Given his respiratory symptoms a COVID swab was obtained and he was found to be COVID-positive. His rash was treated with steroids and epinephrine. He had a reported allergy to antihistamines and Benadryl and therefore Pepcid and Benadryl were held. He was given 1 L of fluid for his hypotension but aggressive fluid resuscitation was held due to his COVID 19 diagnosis as aggressive fluid resuscitation can worsen symptoms. He remained on room air throughout his hospitalization but was admitted to the ICU given his hypotension and was started on Levophed. He only needed the Levophed for very short period of time after his subcu epinephrine was given and was able to be weaned off his medications that were supporting blood pressure. It was noted however it when he arrived at the intensive care unit that he had some facial and lip swelling along with his rash. The etiology of his anaphylaxis is unclear at this point. There does not seem to be any insect bites and the patient is not reporting any new exposures. We will discharge him with an EpiPen and instruct him to follow-up with allergy and immunology. Referral information was given and he is to call for an appointment on Tuesday. With regards to his COVID-19, his symptoms started on Tuesday and we recommended 10 days of quarantine and a work slip was given to him to be off until next Tuesday. He was discharged home on room air in stable condition on 03/20/2022. Discharge diagnoses: Anaphylactic reaction Hypotension-resolved FAY-resolved COVID-19 infection Alcohol abuse Physical Exam Const alert, oriented x3, no apparent distress, average body habitus, no limitations, healthy appearing and well nourished Constitutional Narrative: Middle-aged white male sitting up on the edge of the bed eating breakfast, appears comfortable nontoxic General Appearance: cooperative, comfortable, well kempt and well developed Orientation / Consciousness: awake Exam Limitations: no limitations HEENT normocephalic, head/scalp atraumatic, hearing grossly normal bilaterally and moist oral mucous membranes Resp normal respiratory effort, no retractions, no use of accessory muscles and clear to auscultation bilaterally Auscultation: Negative for crackles, rales, rhonchi or wheezes Cardio regular rate, regular rhythm, S1 normal heart sound, S2 normal heart sound, no murmurs, no rub, no gallops, no clicks and no JVD GI normal to inspection, nondistended, normoactive bowel sounds, soft to palpation, non-tender and non-distended; Negative for hepatosplenomegaly Extremity no clubbing, cyanosis or edema Extremity Narrative: 2+ pedal pulses Skin no rashes or lesions noted, no wounds, skin turgor normal and no jaundice Skin Narrative: Rash has resolved Neuro oriented x3, CN's II-XII intact bilaterally, moves all extremities, no focal motor deficits and no sensory deficits noted Sensorium / Orientation: awake and alert Speech: speech normal Motor Exam: strength 5/5 throughout Psych affect normal Weight / BMI Weight Weight: 95.254 kg Body Mass Index (BMI) 27.1 ABG / Lab / Microbiology Data Result Diagrams: 03/20/22 06:56 03/20/22 06:56 Laboratory: Laboratory Results - last 24 hr 03/20/22 06:56: WBC 8.0, RBC 3.95 L, Hgb 11.6 L, Hct 35.2 L, MCV 89.1, MCH 29.4, MCHC 33.0, RDW Std Deviation 45.0 H, RDW Coeff of Lázaro 13.8, Plt Count 145 L, MPV 10.2, Immature Gran % (Auto) 0.400, Neut % (Auto) 71.7 H, Lymph % (Auto) 19.7, Mcpherson % (Auto) 7.6, Eos % (Auto) 0.5, Baso % (Auto) 0.1, Absolute Neuts (auto) 5.7, Absolute Lymphs (auto) 1.57, Nucleated RBC % 0 03/20/22 06:56: Sodium 141, Potassium 3.7, Chloride 108 H, Carbon Dioxide 27.0, Anion Gap 6, BUN 21 H, Creatinine 1.09, Estim Creat Clear Calc 89.03, Est GFR (MDRD) Af Amer 90, Est GFR (MDRD) Non-Af 75, BUN/Creatinine Ratio 19.3, Glucose 105, Calcium 8.6 Microbiology: Microbiology 03/18/22 22:15 Nasal Secretion SARS-CoV-2 & FLU Antigen (Rapid) - Final SARS-CoV-2 (COVID 19) D/C Instructions Discharge Diet: No restrictions Discharge Activity: Return to Normal Activity Return to work on: 03/26/22 Meaningful Use Info Meaningful Use Diagnoses (Choose all that apply): None applicable Discharge Plan Admission Admit Date/Time: 03/19/22 01:04 Primary Reason for Your Visit: Anaphylaxis Attending Provider: Sarah Aguirre Primary Care Provider: Celio Ramírez Consulting Providers: Ton Kelly ; Cornel Moran Instructions Forms: Work Excuse Additional Instructions / Restrictions: Please self quarantine until 03/26/2022 Discharge Orders/Prescriptions Prescriptions: New epinephrine [EpiPen 2-Gold] 0.3 mg/0.3 mL auto-injector 0.3 mg IM Q4H PRN (Reason: anaphylaxis) Qty: 1 RF: 0 Referrals / Follow Up: Celio Ramírez MD [Primary Care Provider] - Within 2 Weeks Armando Hernandez MD [COURTESY STAFF PHYSICIAN] - Within 1 Month (call for appt on Thursday 03/22) Disposition Disposition (needs filled in before D/C Order can be placed): Home, Self Care Charges/Coding Visit Charges Inpatient E&M: 77957 Disch Hosp
== END 2022-03-20 12:09 | disposition home or self-care (01) | DRG 915 ==
LOC: ED 03-19 01:27 → ICU 03-19 06:54 → MS3 03-20 07:08
PROVIDERS: Admitting Provider Hospitalist; Emergency Provider Emergency Medicine; PCP Internal Medicine Cardiovascular Disease; Visit Provider Internal Medicine
DX: T78.2XXA Anaphylactic shock, unspecified, initial encounter (principal); U07.1 COVID-19; N17.9 Acute kidney failure, unspecified; I95.9 Hypotension, unspecified; F17.220 Nicotine dependence, chewing tobacco, uncomplicated; E80.6 Other disorders of bilirubin metabolism; F10.10 Alcohol abuse, uncomplicated; R21 Rash and other nonspecific skin eruption; Z28.310 Unvaccinated for COVID-19
CPT/HCPCS: 36415; 71045; 80048; 80053; 80076; 83036; 83605; 84484; 85025; 87428; 93005; 97802; 99285; J7030; J7050; A4216; J3490

== ENCOUNTER → 2022-04-28 | Outpatient (CLI) | payer OTHER, SELFPAY ==
[2022-04-28 08:58] LABS: Erythrocyte Sedimentation Rate 5 mm/hr (0-20)
[2022-04-28 09:01] LABS: Absolute Lymphocyte Count 1.43 X10^3/uL (0.83-4.51); Absolute Neutrophil Count 2.9 X10^3/uL (2.0-7.7); Basophil# 0.07 X10^3/uL; Basophil% 1.4 % (0-1); Eosinophil# 0.25 X10^3/uL; Hematocrit 40.7 % (40-54); Hemoglobin 13.8 g/dL (13.0-16.5); Lymphocyte # 1.43 X10^3/ul (0.83-4.51); Lymphocyte % 28.4 % (19-41); Mean Corp Hgb Conc 33.9 g/dL (32-36); Mean Corpuscular Hgb 29.3 pg (27.0-32.0); Mean Corpuscular Volume 86.4 fL (80-94); Mean Platelet Vol. 9.7 fl (6.2-12.0); Monocyte% 7.9 % (0-10); NRBC Flagged by Analyzer 0 % (0-5); Neutrophil # 2.87 X10^3/uL (2.7-7.7); Neutrophil % 56.9 % (47-70); Platelet Count 237 K/mm3 (150-450); RBC Distribution Width CV 13.7 % (11.6-14.6); RBC Distribution Width SD 43.5 fl (35.1-43.9); Red Blood Count 4.71 M/mm3 (4.6-6.2)
[2022-04-28 09:23] LABS: Vitamin D,25 Hydroxy 28.7 ng/mL
[2022-04-28 09:28] LABS: AST(SGOT) 10 U/L (15-37); Alanine Aminotransfer ALT/SGPT 20 U/L (16-61); Albumin, Serum 3.8 g/dL (3.2-5.0); Alkaline Phosphatase 62 U/L (45-117); BUN 13 mg/dL (7-18); Bilirubin, Direct 0.35 mg/dL (0.00-0.30); Creatinine, Serum 1.27 mg/dL (0.70-1.30); EST Glomerular Filtration Rate 62 mL/min (>60); Est Glom Filt Rate - Afr Amer 76 mL/min (>60); Globulin 3.5 g/dL (2.2-4.2); Glucose 94 mg/dL (74-106); Protein, Total 7.3 g/dL (6.4-8.2); Rheumatoid Factor < 10.0 IU/mL (<15); Thyroid Stim Hormone (TSH) 3.17 uIU/mL (0.358-3.74); Uric Acid 4.5 mg/dL (3.5-7.2)
[2022-04-30 19:04] LABS: Anti-Nuclear Antibody Test Negative (.)
[2022-05-01 08:40] LABS: Thyroid Peroxidase AB < 8 IU/mL (0-34)
== END | disposition home or self-care (01) ==
PROVIDERS: PCP Internal Medicine Cardiovascular Disease; Visit Provider Specialist
DX: E55.9 Vitamin D deficiency, unspecified (principal); E07.9 Disorder of thyroid, unspecified; L50.1 Idiopathic urticaria; T78.3XXD Angioneurotic edema, subsequent encounter; Z91.038 Other insect allergy status
CPT/HCPCS: 36415; 80076; 82306; 82565; 82947; 83520; 84443; 84520; 84550; 85025; 85652; 86038; 86376; 86431